=== PATIENT | male | born 1990 | race Caucasian/White ===

== ENCOUNTER 2016-09-12 11:55 | Emergency (ER) | payer BC, MEDICAID ==
[2016-09-12 12:37] VITALS: BP 120/74
[2016-09-12] MEDS ORDERED: PREDNISONE 20 MG TABLET PO ONE (12:55)
--- NOTE | 2016-09-12 13:04 | ER Document Report ---
HPI - HPI Patient complains to provider of: fascicular itchy rash Onset: This morning Onset/Duration: Gradual Pain Level: 0 Context: 25-year-old male that was in the [place] over the weekend developed a vesicular itchy rash to his face and groin. He is highly allergic to poison elizabeth and he thinks that he has it again Associated Symptoms: None Exacerbated by: Denies Relieved by: Denies Similar symptoms previously: No Recently seen / treated by doctor: No - ROS ROS below otherwise negative: Yes Systems Reviewed and Negative: Yes All other systems reviewed and negative - DERM Skin Color: Erythema Past Medical History - General Information source: Patient - Social History Smoking Status: Unknown if Ever Smoked Frequency of alcohol use: None Drug Abuse: None Lives with: Family Family History: Reviewed & Not Pertinent Patient has suicidal ideation: No Patient has homicidal ideation: No Renal/ Medical History: Denies: Hx Peritoneal Dialysis Musculoskeltal Medical History: Reports Hx Musculoskeletal Deformity, Reports Hx Musculoskeletal Trauma Skin Medical History: Reports Hx MRSA Traumatic Medical History: Reports: Hx Fractures - right hand Past Surgical History: Reports: Hx Abdominal Surgery - pyloric stenosis, Hx Orthopedic Surgery - left great toe, right hand - Immunizations Hx Diphtheria, Pertussis, Tetanus Vaccination: Yes Vertical Provider Document - CONSTITUTIONAL Agree With Documented VS: Yes Exam Limitations: No Limitations - INFECTION CONTROL TRAVEL OUTSIDE OF THE [place] IN LAST 30 DAYS: No - HEENT HEENT: Normocephalic, PERRLA Notes: Vesicular rash right side of his face with eyelid swelling. The right eyeball is normal with no injection. - NECK Neck: Supple. negative: Lymphadenopathy-Left, Lymphadenopathy-Right - RESPIRATORY Respiratory: Breath Sounds Normal, No Respiratory Distress O2 Sat by Pulse Oximetry: 99 - CARDIOVASCULAR Cardiovascular: Regular Rate, Regular Rhythm - REPRODUCTIVE Male Genitalia: Abnormal Inspection - Similar appearing rash to scrotum - MUSCULOSKELETAL/EXTREMETIES Musculoskeletal/Extremeties: ADRIAN POOL - NEURO Level of Consciousness: Awake, Alert - DERM Integumentary: Warm, Dry, Rash - See above Course - Vital Signs Vital signs: Temp Pulse Resp BP Pulse Ox 98.2 F 96 16 120/74 99 09/12/16 12:33 09/12/16 12:33 09/12/16 12:33 09/12/16 12:33 09/12/16 12:33 Discharge - Discharge Clinical Impression: Poison elizabeth Condition: Good Disposition: HOME, SELF-CARE Instructions: Use of Diphenhydramine, Topical Steroid Cream or Ointment ([facility]), Corticosteroid Medication ([facility]), Contact Dermatitis ([facility]) Additional Instructions: Benadryl for itching Steroids cream may help do not scratch that so you will not get secondary infection Return to the emergency room if worse Please complete the patient satisfaction survey if you get one, and return it.. If you do not receive a survey, then you can go to the [facility] website, [email or web address] and place your comments about your very good care. Thank you very much. It was a pleasure being your medical provider today. Prescriptions: RX: Prednisone [Deltasone 10 mg Tablet] 10 mg PO ASDIR PRN #42 tablet PRN Reason: Forms: Return to Work Referrals: ARACELI HUTTON MD [Primary Care Provider] - Follow up as needed
== END 2016-09-12 13:15 | disposition home or self-care (01) ==
LOC: ER 11:55
DX: L23.7 Allergic contact dermatitis due to plants, except food (principal); Z86.14 Personal history of Methicillin resistant Staphylococcus aureus infection
CPT/HCPCS: 99282; J7512

== ENCOUNTER 2016-09-13 11:16 | Emergency (ER) | payer BC ==
[2016-09-13] MEDS ORDERED: OXYCODONE-ACETAMINOPHEN 5-325 MG TABLET PO ONE (11:46)
[2016-09-13] MEDS ORDERED: NORMAL SALINE 1000 ML 1,000 ML IV ONE (11:47)
--- NOTE | 2016-09-13 11:47 | ER Document Report ---
ED Medical Screen (RME) - General Mode of Arrival: Ambulatory Information source: Patient TRAVEL OUTSIDE OF THE [place] IN LAST 30 DAYS: No - HPI Patient complains to provider of: Swelling and discomfort to the right eye and groin Onset: Other - 2 days ago Associated Symptoms: Other - see notes above <JOSUÉ NINO - Last Filed: 09/13/16 12:37> <MELANIE WING - Last Filed: 09/13/16 13:25> - General Chief Complaint: Eye Problem Stated Complaint: RIGHT EYE PAIN, SWELLING Notes: 25 year old sexually active male presents to the ED complaining of pain, swelling, and discomfort to the right eye and groin that started 2 days ago after taking a camping trip 3 days ago. Patient reports that he has some minor rashes to his extremities from the trip. Patient developed groin pain when he woke up 2 days ago and then developed the right eye swelling later that evening. Patient additionally complains of decreased urination, but no dysuria or fever. Patient was seen here yesterday and was prescribed Prednisone, which the patient states hasn't helped. Patient took 2 tablets of Benadryl this morning at 0930. Patient explains that his eye swelling is significantly worse than it was yesterday. (JOSUÉ NINO) - Related Data Allergies/Adverse Reactions: No Known Allergies Allergy (Verified 09/13/16 11:42) Home Medications: Current Home Medications No Home Medications 09/13/16 [History] Past Medical History - General Information source: Patient Neurological Medical History: Denies: Hx Seizures Renal/ Medical History: Denies: Hx Peritoneal Dialysis Musculoskeltal Medical History: Reports Hx Musculoskeletal Deformity, Reports Hx Musculoskeletal Trauma Skin Medical History: Reports Hx MRSA Traumatic Medical History: Reports: Hx Fractures - right hand Past Surgical History: Reports: Hx Abdominal Surgery - pyloric stenosis, Hx Orthopedic Surgery - left great toe, right hand - Immunizations Hx Diphtheria, Pertussis, Tetanus Vaccination: Yes <JOSUÉ NINO - Last Filed: 09/13/16 12:37> Review of Systems - Review of Systems Constitutional: No symptoms reported EENT: See HPI, Eye pain - right eye pain and swelling Cardiovascular: No symptoms reported Respiratory: No symptoms reported Gastrointestinal: No symptoms reported Genitourinary: No symptoms reported Male Genitourinary: See HPI, Other - swelling and discomfort to the groin Musculoskeletal: No symptoms reported Skin: No symptoms reported Hematologic/Lymphatic: No symptoms reported Neurological/Psychological: No symptoms reported -: Yes All other systems reviewed and negative <JOSUÉ NINO - Last Filed: 09/13/16 12:37> Physical Exam - HEENT Head: Other - Right upper and lower eye lid swelling with some edema and redness. Rash to the bilateral face. Eyes: Normal - Vision is intact., Other - No erythema. Conjunctiva: Normal Extraocular movements intact: Yes - No pain with EOM - Respiratory Respiratory status: No respiratory distress - Extremities General upper extremity: Normal inspection, Normal ROM General lower extremity: Normal inspection, Normal ROM <JOSUÉ NINO - Last Filed: 09/13/16 12:37> Course <JOSUÉ NINO - Last Filed: 09/13/16 12:37> - Laboratory Result Diagrams: 09/13/16 11:50 09/13/16 11:50 <MELANIE WING - Last Filed: 09/13/16 13:25> - Re-evaluation Re-evalutation: 09/13/16 13:15 I personally performed the services described in the documentation, reviewed and edited the documentation which was dictated to the scribe in my presence, and it accurately records my words and actions. (MELANIE WING) - Vital Signs Vital signs: Temp Pulse Resp BP Pulse Ox 98.4 F 67 16 126/69 H 100 09/13/16 11:38 09/13/16 11:38 09/13/16 11:38 09/13/16 11:38 09/13/16 11:38 - Laboratory Laboratory results interpreted by me: 09/13/16 11:50 WBC 13.0 H Absolute Neutrophils 9.0 H Scribe Documentation - Scribe Written by Scribisidoro:: Kiran Garcia, 09/13/2016 1158 acting as scribe for :: Hay <JOSUÉ NINO - Last Filed: 09/13/16 12:37>
[2016-09-13] MEDS ORDERED: CLINDAMYCIN 600 MG/D5W RTU 50 ML IV ONE (11:48)
[2016-09-13] MEDS ORDERED: FAMOTIDINE INJ/PF 20 MG/2 ML SDV IV ONE (12:38)
[2016-09-13] MEDS ORDERED: DIPHENHYDRAMINE HCL 50 MG/ML VIAL IV ONE (12:38)
[2016-09-13] MEDS ORDERED: METHYLPREDNISOLONE INJ 125 MG/2 ML SDV IV ONE (12:38)
[2016-09-13] MEDS ORDERED: MORPHINE SULFATE 10 MG/ML INJ IV ONE (12:39)
[2016-09-13 12:55] LABS: APPEARANCE,URINE SLIGHTLY-CLOUDY; BILIRUBIN,URINE NEGATIVE (NEGATIVE); GLUCOSE, URINE NEGATIVE (NEGATIVE); KETONES,URINE NEGATIVE (NEGATIVE); LEUKOCYTE ESTERASE,URINE NEGATIVE (NEGATIVE); NITRITE,URINE NEGATIVE (NEGATIVE); PROTEIN,URINE NEGATIVE (NEGATIVE); URINE SPECIFIC GRAVITY 1.031; UROBILINOGEN,URINE NEGATIVE mg/dL (<2.0)
[2016-09-13 12:59] LABS: ABSOLUTE BASOPHILS # (AUTO) 0.1 10^3/uL (0.0-0.2); ABSOLUTE EOSINOPHILS # (AUTO) 0.6 10^3/uL (0.0-0.6); ABSOLUTE LYMPHOCYTES (AUTO) 2.5 10^3/uL (0.5-4.7); ABSOLUTE MONOCYTES (AUTO) 0.8 10^3/uL (0.1-1.4); BASOPHILS % (AUTO) 0.5 % (0-2); EOSINOPHILS % (AUTO) 4.7 % (0-6); HEMATOCRIT 46.9 % (37.9-51.0); HEMOGLOBIN 15.8 g/dL (13.5-17.0); HGB HCT DIFFERENCE 0.5; LYMPHOCYTES % (AUTO) 19.3 % (13-45); MEAN CORPUSCULAR HEMOGLOBIN 29.5 pg (27.0-33.4); MEAN CORPUSCULAR HGB CONC 33.7 g/dL (32.0-36.0); MEAN CORPUSCULAR VOLUME 88 fl (80-97); MONOCYTES % (AUTO) 6.2 % (3-13); RED BLOOD COUNT 5.35 10^6/uL (4.35-5.55); RED CELL DISTRIBUTION WIDTH 12.9 % (11.5-14.0); SEGMENTED NEUTROPHILS % (AUTO) 69.3 % (42-78)
--- NOTE | 2016-09-13 13:00 | ER Document Report ---
ED General - General Chief Complaint: Eye Problem Stated Complaint: RIGHT EYE PAIN, SWELLING Mode of Arrival: Ambulatory Information source: Patient Notes: 25-year-old male presents with complaints of right facial swelling pain patient notes that symptoms have been worsening over the past few days. Patient notes he was exposed to poison elizabeth, had poison elizabeth on his face groin right arm and right leg. pt notes he was seen yesterday started on prednisone, symptoms have since worsened, denies any fevers or chills TRAVEL OUTSIDE OF THE [place] IN LAST 30 DAYS: No - HPI Onset: Last week Onset/Duration: Worse Quality of pain: Achy Severity: Mild Pain Level: 1 Associated symptoms: Allergy/hay fever Exacerbated by: Denies Relieved by: Denies Similar symptoms previously: Yes Recently seen / treated by doctor: Yes - Related Data Allergies/Adverse Reactions: No Known Allergies Allergy (Verified 09/13/16 11:42) Past Medical History - General Information source: Patient - Social History Smoking Status: Never Smoker Cigarette use (# per day): No Chew tobacco use (# tins/day): No Smoking Education Provided: No Family History: Reviewed & Not Pertinent Patient has suicidal ideation: No Patient has homicidal ideation: No Neurological Medical History: Denies: Hx Seizures Renal/ Medical History: Denies: Hx Peritoneal Dialysis Musculoskeltal Medical History: Reports Hx Musculoskeletal Deformity, Reports Hx Musculoskeletal Trauma Skin Medical History: Reports Hx MRSA Traumatic Medical History: Reports: Hx Fractures - right hand Past Surgical History: Reports: Hx Abdominal Surgery - pyloric stenosis, Hx Orthopedic Surgery - left great toe, right hand - Immunizations Hx Diphtheria, Pertussis, Tetanus Vaccination: Yes Review of Systems - Review of Systems Notes: REVIEW OF SYSTEMS: CONSTITUTIONAL : Denies fever, chills, or sweats. Denies recent illness. EENT: Denies eye, ear, throat, or mouth pain or symptoms. Denies nasal or sinus congestion or discharge. Denies throat, tongue, or mouth swelling or difficulty swallowing. CARDIOVASCULAR: Denies chest pain. Denies palpitations or racing or irregular heart beat. Denies ankle edema. RESPIRATORY: Denies cough, cold, or chest congestion. Denies shortness of breath, difficulty breathing, or wheezing. GASTROINTESTINAL: Denies abdominal pain or distention. Denies nausea, vomiting , or diarrhea. Denies blood in vomitus, stools, or per rectum. Denies black, tarry stools. Denies constipation. GENITOURINARY: Denies difficulty urinating, painful urination, burning, frequency, blood in urine, or discharge. MUSCULOSKELETAL: Denies back or neck pain or stiffness. Denies joint pain or swelling. SKIN: Facial swelling rash all throughout HEMATOLOGIC : Denies easy bruising or bleeding. LYMPHATIC: Denies swollen, enlarged glands. NEUROLOGICAL: Denies confusion or altered mental status. Denies passing out or loss of consciousness. Denies dizziness or lightheadedness. Denies headache. Denies weakness or paralysis or loss of use of either side. Denies problems with gait or speech. Denies sensory loss, numbness, or tingling. Denies seizures. PSYCHIATRIC: Denies anxiety or stress. Denies depression, suicidal ideation, or homicidal ideation. ALL OTHER SYSTEMS REVIEWED AND NEGATIVE. Dictation was performed using [employer] voice recognition software PHYSICAL EXAMINATION: GENERAL: Well-appearing, well-nourished and in no acute distress. HEAD: obvious facial edema, EYES: Pupils equal round and reactive to light, extraocular movements intact, sclera anicteric, presepatl cellulitis noted ENT: Nares patent, oropharynx clear without exudates. Moist mucous membranes. NECK: Normal range of motion, supple without lymphadenopathy LUNGS: Breath sounds clear to auscultation bilaterally and equal. No wheezes rales or rhonchi. HEART: Regular rate and rhythm without murmurs ABDOMEN: Soft, nontender, nondistended abdomen. No guarding, no rebound. No masses appreciated. Musculoskeletal: Normal range of motion, no pitting or edema. No cyanosis. NEUROLOGICAL: Cranial nerves grossly intact. Normal speech, normal gait. Normal sensory, motor exams PSYCH: Normal mood, normal affect. SKIN: Rash consistent with poison elizabeth on right wrist right perez right face, impetigo-like yellow discharge of right cheek obvious edema of the right face and left upper forehead and orbital region Physical Exam - Vital signs Vitals: Temp Pulse Resp BP Pulse Ox 98.4 F 67 16 126/69 H 100 09/13/16 11:38 09/13/16 11:38 09/13/16 11:38 09/13/16 11:38 09/13/16 11:38 - HEENT Visual acuity- Right eye: 20/30 Visual acuity- Left eye: n/a Visual acuity- Both eyes: n/a Corrective lenses worn: Yes Course - Re-evaluation Re-evalutation: 09/13/16 13:00 Patient has obvious preseptal cellulitis secondary to allergic reaction. He will be started on antibiotics given anti-inflammatories. Otherwise patient looks well CT ORBIT has been ordered to rule out any deep underlying infectious process however patient has no exophthalmos, he has no strabismus. Patient does not have any pain with movement of the 09/13/16 16:13 Patient notes significant improvement of symptoms, will be discharged home with continued antibiotics After performing a Medical Screening Examination, I estimate there is LOW risk for OPEN FRACTURE, COMPARTMENT SYNDROME, TENDON RUPTURE, ACUTE NEUROVASCULAR INJURY, or RETAINED FOREIGN BODY, thus I consider the discharge disposition reasonable. Also, there is no evidence or peritonitis, sepsis, or toxicity. The patient and I have discussed the diagnosis and risks, and we agree with discharging home with close follow-up with the understanding that symptoms and presentations can change. We also discussed returning to the Emergency Department immediately if new or worsening symptoms occur. We have discussed the symptoms which are most concerning (e.g., changing or worsening pain, fever , numbness, weakness, cool or painful digits) that necessitate immediate return. - Vital Signs Vital signs: Temp Pulse Resp BP Pulse Ox 98.4 F 67 16 126/69 H 100 09/13/16 11:38 09/13/16 11:38 09/13/16 11:38 09/13/16 11:38 09/13/16 11:38 - Laboratory Result Diagrams: 09/13/16 11:50 09/13/16 11:50 Laboratory results interpreted by me: 09/13/16 11:50 WBC 13.0 H Absolute Neutrophils 9.0 H - Diagnostic Test Radiology reviewed: Image reviewed, Reports reviewed Discharge - Discharge Clinical Impression: Poison elizabeth, Facial edema, Preseptal cellulitis Condition: Stable Disposition: HOME, SELF-CARE Instructions: Contact Dermatitis ([facility]) Additional Instructions: Follow up with your physician tomorrow for further care or return to the ED IMMEDIATELY if symptoms worsen or new concerns occur Prescriptions: Clindamycin HCl 300 mg PO Q6 #40 capsule Diphenhydramine HCl [Benadryl] 50 mg PO Q6 #20 capsule Famotidine [Pepcid 20 mg Tablet] 20 mg PO DAILY #5 tablet Prednisone 60 mg PO DAILY #15 tablet
[2016-09-13 13:16] LABS: ANION GAP 14 (5-19); BLOOD UREA NITROGEN 11 mg/dL (7-20); CALCIUM 9.9 mg/dL (8.4-10.2); CARBON DIOXIDE 27 mmol/L (22-30); CHLORIDE 103 mmol/L (98-107); CREATININE RESULT 0.75 mg/dL (0.52-1.25); GLUCOSE 82 mg/dL (75-110); POTASSIUM 4.3 mmol/L (3.6-5.0); SODIUM 144.4 mmol/L (137-145)
[2016-09-13] MEDS ORDERED: EPINEPHRINE INJ/PF 1 MG/1 ML AMPULE IM ONE (13:19)
[2016-09-13 18:03] VITALS: BP 131/69
== END 2016-09-13 16:40 | disposition home or self-care (01) ==
LOC: ER 11:16
DX: H57.11 Ocular pain, right eye (principal); L23.7 Allergic contact dermatitis due to plants, except food; L03.213 Periorbital cellulitis; R60.0 Localized edema
CPT/HCPCS: 99284; 96372; 96375; 96365; 36415; 87040; 85025; 80048; 81001; 70481; J1200; J0171; J2930; J2270; S0028

== ENCOUNTER 2016-10-09 20:13 | Emergency (ER) | payer BC ==
[2016-10-09 21:18] VITALS: BP 121/74
--- NOTE | 2016-10-09 23:05 | ER Document Report ---
ED Medical Screen (RME) - General Chief Complaint: Medical Complaint Stated Complaint: DOCTORS NOTE Time seen by provider: 23:05 Mode of Arrival: Ambulatory Information source: Patient Notes: 25-year-old man with no medical problems who is vomiting at work today and left work. He had had 2 hot dogs last night which he normally doesn't have an awoke with nausea and vomiting. Currently, he denies any more nausea and vomiting. He denies any fever or abdominal pain. TRAVEL OUTSIDE OF THE [place] IN LAST 30 DAYS: No - HPI Onset: This morning Onset/Duration: Sudden Quality of pain: No pain Severity: None Pain Level: Denies Associated Symptoms: Diarrhea, Nausea, Vomiting Exacerbated by: Denies Relieved by: Denies Similar symptoms previously: No Recently seen / treated by doctor: No - Related Data Smoking: Non-smoker Frequency of alcohol use: None Drug Abuse: None Allergies/Adverse Reactions: No Known Allergies Allergy (Verified 09/13/16 11:42) Past Medical History - General Information source: Patient - Social History Cigarette use (# per day): No Chew tobacco use (# tins/day): No Frequency of alcohol use: None Drug Abuse: None Lives with: Family Family history: Reviewed & Not Pertinent - Medical History Medical History: Negative Neurological Medical History: Denies: Hx Seizures Renal/ Medical History: Denies: Hx Peritoneal Dialysis Musculoskeltal Medical History: Reports Hx Musculoskeletal Deformity, Reports Hx Musculoskeletal Trauma Skin Medical History: Reports Hx MRSA Traumatic Medical History: Reports: Hx Fractures - right hand Past Surgical History: Reports: Hx Abdominal Surgery - pyloric stenosis, Hx Orthopedic Surgery - left great toe, right hand - Immunizations Hx Diphtheria, Pertussis, Tetanus Vaccination: Yes Review of Systems - Review of Systems Constitutional: denies: Chills, Fever EENT: No symptoms reported Cardiovascular: No symptoms reported Respiratory: No symptoms reported Gastrointestinal: No symptoms reported Genitourinary: No symptoms reported Male Genitourinary: No symptoms reported Musculoskeletal: No symptoms reported Skin: No symptoms reported Hematologic/Lymphatic: No symptoms reported Neurological/Psychological: No symptoms reported Physical Exam - Vital signs Vitals: Temp Pulse Resp BP Pulse Ox 98.8 F 76 18 121/74 98 10/09/16 21:17 10/09/16 21:17 10/09/16 21:17 10/09/16 21:17 10/09/16 21:17 Notes: Physical exam: GENERAL: 85-year-old man, alert and oriented 3, no acute distress HEAD: Atraumatic, normocephalic. EYES: Extraocular muscles intact, conjunctiva are normal. ENT: Moist mucous membranes. NECK: Normal range of motion, supple LUNGS: Breath sounds clear to auscultation bilaterally and equal. No wheezes rales or rhonchi. HEART: Regular rate and rhythm without murmurs, rubs or gallops. ABDOMEN: Soft, normoactive bowel sounds. No tenderness to palpation. No guarding, no rebound. No masses appreciated. EXTREMITIES: Normal range of motion, no pitting or edema. No clubbing or cyanosis. NEUROLOGICAL: Normal speech, normal gait. PSYCH: Normal mood, normal affect. Course - Vital Signs Vital signs: Temp Pulse Resp BP Pulse Ox 98.8 F 76 18 121/74 98 10/09/16 21:17 10/09/16 21:17 10/09/16 21:17 10/09/16 21:17 10/09/16 21:17 Doctor's Discharge - Discharge Clinical Impression: vomiting resolved Condition: Stable Disposition: HOME, SELF-CARE Additional Instructions: Recommendations: Rest, drink plenty of fluids and advance diet as tolerated. Return to the ER for any problems. Can return to work tomorrow morning. Forms: Return to Work
== END 2016-10-09 23:15 | disposition home or self-care (01) ==
LOC: ER 20:13
DX: R11.10 Vomiting, unspecified (principal); Z86.14 Personal history of Methicillin resistant Staphylococcus aureus infection
CPT/HCPCS: 99283

== ENCOUNTER 2016-11-11 07:08 | Emergency (ER) | payer BC ==
[2016-11-11] MEDS ORDERED: DIPHENHYDRAMINE HCL 50 MG/ML VIAL IV ONE (08:05)
[2016-11-11] MEDS ORDERED: FAMOTIDINE 20 MG TABLET PO ONE (08:05)
[2016-11-11] MEDS ORDERED: DIPHENHYDRAMINE HCL 50 MG/ML VIAL IM ONE (08:11)
--- NOTE | 2016-11-11 09:18 | ER Document Report ---
HPI - HPI Onset: This morning Onset/Duration: Sudden Quality of pain: No pain Pain Level: 0 Context: Patient presents emergency department with reports of possible allergic reaction to diclofenac. Patient reports he was just prescribed this medication by his primary care provider for back pain he took one this morning at 530. Approximately 1 hour later he felt like his face is on fire his ears are itching and now he started to itch all over. Denies trouble breathing or swallowing. Denies history of allergies to medication. Denies fever vomiting diarrhea. Patient is calm talking in clear full sentences. Associated Symptoms: None Exacerbated by: Denies Relieved by: Denies Similar symptoms previously: No Recently seen / treated by doctor: No - DERM Skin Color: Normal, [place] Past Medical History - General Information source: Patient - Social History Smoking Status: Unknown if Ever Smoked Frequency of alcohol use: Occasional Drug Abuse: None Occupation: [employer] Family History: Reviewed & Not Pertinent Patient has suicidal ideation: No Patient has homicidal ideation: No Neurological Medical History: Denies: Hx Seizures Renal/ Medical History: Denies: Hx Peritoneal Dialysis Musculoskeltal Medical History: Reports Hx Musculoskeletal Deformity, Reports Hx Musculoskeletal Trauma Skin Medical History: Reports Hx MRSA Traumatic Medical History: Reports: Hx Fractures - right hand Past Surgical History: Reports: Hx Abdominal Surgery - pyloric stenosis, Hx Orthopedic Surgery - left great toe, right hand - Immunizations Hx Diphtheria, Pertussis, Tetanus Vaccination: Yes Vertical Provider Document - CONSTITUTIONAL Agree With Documented VS: Yes Exam Limitations: No Limitations General Appearance: WD/WN, No Apparent Distress - INFECTION CONTROL TRAVEL OUTSIDE OF THE [place] IN LAST 30 DAYS: No - HEENT HEENT: Atraumatic, Normocephalic. negative: Conjuctival Injection, Pharyngeal Erythema - NECK Neck: Normal Inspection, Supple. negative: Lymphadenopathy-Left, Lymphadenopathy-Right - RESPIRATORY Respiratory: Breath Sounds Normal, No Respiratory Distress O2 Sat by Pulse Oximetry: 98 - CARDIOVASCULAR Cardiovascular: Regular Rate, Regular Rhythm - GI/ABDOMEN Gastrointestinal: Abdomen Soft, Abdomen Non-Tender - BACK Back: Normal Inspection - MUSCULOSKELETAL/EXTREMETIES Musculoskeletal/Extremeties: MAEW, FROM - NEURO Level of Consciousness: Awake, Alert, Appropriate Motor/Sensory: No Motor Deficit - DERM Integumentary: Warm, Dry, No Rash Adult Front & Back Diagram: 1 - facial erythema Course - Re-evaluation Re-evalutation: 11/11/16 No facial erythema now. Patient reports he feels much better. Denies trouble breathing. Patient was instructed to discontinue taking diclofenac. He was also instructed to follow-up with his primary care provider for alternative medication. - Vital Signs Vital signs: Temp Pulse Resp BP Pulse Ox 98.2 F 68 16 126/75 H 98 11/11/16 07:11 11/11/16 07:11 11/11/16 07:11 11/11/16 07:11 11/11/16 07:11 Discharge - Discharge Clinical Impression: Elevated blood pressure reading Allergic reaction caused by a drug Qualifiers: Encounter type: initial encounter Qualified Code(s): T78.40XA - Allergy, unspecified, initial encounter Condition: Stable Disposition: HOME, SELF-CARE Instructions: Acute Allergic Reaction to Drugs ([facility]), Use of Diphenhydramine Additional Instructions: *You have been evaluated for allergic reaction to medication *Stop taking the medications * Follow up today with the provider for recheck and alternate medication *Take benadryl as indicated for the next 24 hours *Return to ED for worsening condition, changes, needs, trouble breathing, concerns Monitor your blood pressure. Your blood pressure was elevated today. This may be because you were anxious, in pain or because you need medication. It is important to follow up with your primary care provider for full evaluation. Forms: Elevated Blood Pressure, Return to Work
[2016-11-11 09:29] VITALS: BP 111/64
== END 2016-11-11 09:27 | disposition home or self-care (01) ==
LOC: ER 07:08
DX: T39.395A Adverse effect of other nonsteroidal anti-inflammatory drugs [NSAID], initial encounter (principal); R03.0 Elevated blood-pressure reading, without diagnosis of hypertension; M54.9 Dorsalgia, unspecified; Y92.9 Unspecified place or not applicable
CPT/HCPCS: 99283; 96372; J1200

== ENCOUNTER 2016-11-11 19:08 | Emergency (ER) | payer BC ==
[2016-11-11] MEDS ORDERED: FAMOTIDINE 20 MG TABLET PO ONE (20:12)
[2016-11-11] MEDS ORDERED: PREDNISONE 20 MG TABLET PO ONE (20:12)
[2016-11-11] MEDS ORDERED: HYDROCODONE/ACETAMINOPHEN 5-325 MG 6 TAB/DSPK PO PRN (20:13)
--- NOTE | 2016-11-11 20:18 | ER Document Report ---
HPI - HPI Patient complains to provider of: back pain, itching Onset: Other - chronic, worse for past 2-3 weeks Onset/Duration: Persistent Quality of pain: Sharp Pain Level: 4 Context: Complains of flareup of chronic low back pain to right lower back area for the past 2-3 weeks. Patient denies any new injury. Patient states that he took diclofenac today and developed a skin rash after taking the medication. Patient states that since he is not taking this medicine he needs something else to help treat his back pain. Patient states that he did start itching a few hours ago and took Benadryl again to help with his pruritus. Associated Symptoms: Other - Pain, itching. denies: Fever Exacerbated by: Movement Relieved by: Denies Similar symptoms previously: Yes Recently seen / treated by doctor: Yes - ROS ROS below otherwise negative: Yes Systems Reviewed and Negative: Yes All other systems reviewed and negative - CONSTITUTIONAL Constitutional: DENIES: Fever - EENT EENT: DENIES: Sore Throat - NEURO Neurology: DENIES: Headache, Weakness - CARDIOVASCULAR Cardiovascular: DENIES: Chest pain - RESPIRATORY Respiratory: DENIES: Trouble Breathing, Coughing - GASTROINTESTINAL Gastrointestinal: DENIES: Nausea, Patient vomiting - URINARY Urinary: DENIES: Dysuria - MUSCULOSKELETAL Musculoskeletal: REPORTS: Back Pain - DERM Skin Color: Normal, [place] Skin Problems: Rash Past Medical History - General Information source: Patient - Social History Smoking Status: Never Smoker Chew tobacco use (# tins/day): No Frequency of alcohol use: Occasional Drug Abuse: None Occupation: fast food worker Lives with: Family Family History: Reviewed & Not Pertinent Patient has suicidal ideation: No Patient has homicidal ideation: No Neurological Medical History: Denies: Hx Seizures Renal/ Medical History: Denies: Hx Peritoneal Dialysis Musculoskeltal Medical History: Reports Hx Musculoskeletal Deformity, Reports Hx Musculoskeletal Trauma, Reports Other - back pain Skin Medical History: Reports Hx MRSA Traumatic Medical History: Reports: Hx Fractures - right hand Past Surgical History: Reports: Hx Abdominal Surgery - pyloric stenosis, Hx Orthopedic Surgery - left great toe, right hand - Immunizations Hx Diphtheria, Pertussis, Tetanus Vaccination: Yes Vertical Provider Document - CONSTITUTIONAL Agree With Documented VS: Yes Exam Limitations: No Limitations General Appearance: WD/WN, No Apparent Distress - INFECTION CONTROL TRAVEL OUTSIDE OF THE [place] IN LAST 30 DAYS: No - HEENT HEENT: Atraumatic, Normal ENT Exam, Normocephalic Notes: no angioedema - NECK Neck: Normal Inspection, Supple. negative: Lymphadenopathy-Left, Lymphadenopathy-Right - RESPIRATORY Respiratory: Breath Sounds Normal, No Respiratory Distress, Chest Non-Tender O2 Sat by Pulse Oximetry: 99 - CARDIOVASCULAR Cardiovascular: Regular Rate, Regular Rhythm, No Murmur - BACK Back: Abnormal Inspection - right lower lumbar paraspinal tenderness. negative : CVA Tenderness-Right, CVA Tenderness-Left - MUSCULOSKELETAL/EXTREMETIES Musculoskeletal/Extremeties: ADRIAN POOL Notes: no foot drop, no saddle anesthesia - NEURO Level of Consciousness: Awake, Alert, Appropriate Motor/Sensory: No Motor Deficit, No Sensory Deficit - DERM Integumentary: Warm, Dry, Rash - urticarial rash to extremities Course - Re-evaluation Re-evalutation: 11/11/16 Pt seen earlier this morning for skin rash. Patient was given Benadryl and Pepcid although was not placed on any steroids. Discussed plan of care with patient. Patient verbalized understanding and agrees with plan of care. - Vital Signs Vital signs: Temp Pulse Resp BP Pulse Ox 98.1 F 72 20 133/79 H 99 11/11/16 19:18 11/11/16 19:18 11/11/16 19:18 11/11/16 19:18 11/11/16 19:18 Discharge - Discharge Clinical Impression: Urticaria Low back pain Qualifiers: Chronicity: unspecified Back pain laterality: right Sciatica presence: without sciatica Qualified Code(s): M54.5 - Low back pain Condition: Stable Disposition: HOME, SELF-CARE Instructions: Low Back Pain ([facility]), Warm Packs ([facility]), Ice Packs ([facility]), Oral Narcotic Medication ([facility]), Acute Urticaria ([facility]), Steroid Medication, Use of Diphenhydramine Additional Instructions: return as needed for any new or worsening symptoms take medications as prescribed take benadryl over the counter as directed to help with rash and itching take pepcid twice a day to help with symptoms Prescriptions: Famotidine [Pepcid 20 mg Tablet] 20 mg PO BID #12 tablet Hydrocodone/Acetaminophen [Wilson 5-325 Tablet] 1 each PO Q4 PRN #15 tablet PRN Reason: Prednisone [Deltasone 20 mg Tablet] 3 tab PO DAILY 5 Days Forms: Return to Work Referrals: ARACELI HUTTON MD [ACTIVE STAFF] - Follow up tomorrow [facility] [Provider Group] - Follow up in 3-5 days
[2016-11-11 20:39] VITALS: BP 124/79
== END 2016-11-11 20:40 | disposition home or self-care (01) ==
LOC: ER 19:08
DX: T78.40XA Allergy, unspecified, initial encounter (principal); R03.0 Elevated blood-pressure reading, without diagnosis of hypertension
CPT/HCPCS: 99283

== ENCOUNTER 2016-11-24 15:43 | Emergency (ER) | payer BC ==
[2016-11-24] MEDS ORDERED: KETOROLAC TROMETHAMINE 60 MG/2 ML SDV IM ONE (17:08)
--- NOTE | 2016-11-24 17:11 | ER Document Report ---
HPI - HPI Patient complains to provider of: herniated disc with bakc pain Onset: Other - chronic Quality of pain: Achy Pain Level: 5 Context: 25-year-old male who is ambulatory with chronic back pain diagnosed with herniated disc. Denies any urinary/stool incontinence, saddle anesthesia. Exacerbated by: Movement Relieved by: Remaining still Similar symptoms previously: Yes Recently seen / treated by doctor: Yes - DERM Skin Color: Normal Past Medical History - Social History Smoking Status: Never Smoker Chew tobacco use (# tins/day): No Frequency of alcohol use: None Drug Abuse: None Family History: Reviewed & Not Pertinent Patient has suicidal ideation: No Patient has homicidal ideation: No Neurological Medical History: Denies: Hx Seizures Renal/ Medical History: Denies: Hx Peritoneal Dialysis Musculoskeltal Medical History: Reports Hx Musculoskeletal Deformity, Reports Hx Musculoskeletal Trauma Skin Medical History: Reports Hx MRSA Traumatic Medical History: Reports: Hx Fractures - right hand Past Surgical History: Reports: Hx Abdominal Surgery - pyloric stenosis, Hx Orthopedic Surgery - left great toe, right hand - Immunizations Hx Diphtheria, Pertussis, Tetanus Vaccination: Yes Immunizations Comment: + pneu vacx Vertical Provider Document - CONSTITUTIONAL Agree With Documented VS: Yes Notes: PHYSICAL EXAM GENERAL: Alert, interacts well. NECK: Full range of motion. Supple. Trachea midline. Spinous processes or thoracic spinous process tenderness. Full range of motion able to flex and extend spine. LUNGS: Clear to auscultation bilaterally, no wheezes, rales, or rhonchi. No respiratory distress. HEART: Regular rate and rhythm. No murmurs, gallops, or rubs. ABDOMEN: Soft, nondistended, nontender. No guarding, rebound, or rigidity.. Bowel sounds present in all 4 quadrants. Back: No spinous process tenderness, deformity, step-offs, ecchymosis. No paraspinous muscle tenderness to palpation. Full range of motion. Gait normal. EXTREMITIES: Moves all 4 extremities spontaneously. No edema, radial and dorsalis pedis pulses 2/4 bilaterally. No cyanosis. NEUROLOGICAL: Alert and oriented x4. Normal speech. PSYCH: Normal affect, normal mood. SKIN: Warm, dry, normal turgor. No rashes or lesions noted. - INFECTION CONTROL TRAVEL OUTSIDE OF THE [place] IN LAST 30 DAYS: No - RESPIRATORY O2 Sat by Pulse Oximetry: 99 Course - Re-evaluation Re-evalutation: 11/24/16 17:08 The patient presents with low back pain without signs of spinal cord compression , cauda equina syndrome, infection, aneurysm, or other serious etiology. The patient is neurologically intact. Given the extremely low risk of these diagnoses further testing and evaluation for these possibilities does not appear to be indicated at this time. The patient has been instructed to return if the symptoms worsen or change in any way. - Vital Signs Vital signs: Temp Pulse Resp BP Pulse Ox 98.0 F 70 17 120/79 99 11/24/16 15:47 11/24/16 15:47 11/24/16 15:47 11/24/16 15:47 11/24/16 15:47 Discharge - Discharge Clinical Impression: Chronic back pain Qualifiers: Back pain location: thoracic back pain Condition: Good Disposition: HOME, SELF-CARE Additional Instructions: [id number] colace/docusate will aid as a stool softener LOW BACK PAIN: Three out of every four people will have an episode of disabling back pain during their lifetime. Most commonly the pain is due to straining of the muscles and ligaments in the low back. Usual treatment includes: (1) Rest on a firm surface. Avoid lying on your stomach. (2) Ice pack the painful area. After a few days, gentle heat may be used intermittently to relax the area, or ice packs can be continued. (3) Medication may be needed -- muscle relaxers and antiinflammatory medicines are commonly used. (4) As the back improves, exercises are prescribed to strengthen the back and abdominal muscles. Your doctor will advise you on the proper care for your back at each stage in your recovery. You may be better in a few days -- or healing may take several weeks. If new symptoms of a "herniated disc" (radiation of pain, numbness, or tingling down the back of the leg or weakness in the leg) occur, you should be re-examined. Further testing may be necessary. PAIN MEDICATION INJECTION: You have received an injection of a pain medication. You should experience significant pain relief within 45 minutes. If this injection was a narcotic -- it will impair your judgement, slow your reaction time and make you sleepy (as well as relieve your pain). Narcotics also can cause nausea. You should not drive, work with machinery, or perform any task requiring mental alertness until all effects of the medication are gone -- six to eight hours. Do not take any alcohol, or sedatives, and do not take any other medication without checking with your physician. ICE PACKS: Apply ice packs frequently against the painful area. Many different schedules are recommended, such as "20 minutes on, 20 minutes off" or "one hour ice, two hours rest." If you need to work, you may need to go longer between ice treatments. You should plan to have the area ice packed AT LEAST one fourth of the time. The ice should be applied over the wrap, tape, or splint, or over a layer of cloth -- not directly against the skin. Some ice bags have a built-in cloth and can be put directly on the skin. WARM PACKS: After approximately two days, apply gentle heat (such as a heating pad or hot water bottle) for about 20 to 30 minutes about every two hours -- at least four times daily. Warmth and elevation will help you make a more rapid recovery , and will ease the pain considerably. Do not use HOT heat, and never apply heat for longer than 30 minutes. The continuous heat can invisibly damage skin and muscles -- even when no burn is seen on the surface. Damaged muscles can make you MORE sore. FOLLOW-UP CARE: If you have been referred to a physician for follow-up care, call the physician s office for an appointment as you were instructed or within the next two days. If you experience worsening or a significant change in your symptoms, notify the physician immediately or return to the Emergency Department at any time for re-evaluation. Prescriptions: Ondansetron [Zofran Odt 4 mg Tablet] 1 - 2 tab PO Q4H PRN #15 tab.rapdis PRN Reason: For Nausea/Vomiting Referrals: [facility] [Provider Group] - Follow up tomorrow
[2016-11-24 17:36] VITALS: BP 118/78
== END 2016-11-24 17:36 | disposition home or self-care (01) ==
LOC: ER 15:43
DX: G89.29 Other chronic pain (principal); M54.9 Dorsalgia, unspecified; M54.5 Low back pain
CPT/HCPCS: 99283; 96372; J1885

== ENCOUNTER 2017-02-25 05:04 | Emergency (ER) | payer BC ==
[2017-02-25 06:14] LABS: APPEARANCE,URINE CLEAR; BILIRUBIN,URINE NEGATIVE (NEGATIVE); GLUCOSE, URINE NEGATIVE (NEGATIVE); KETONES,URINE NEGATIVE (NEGATIVE); LEUKOCYTE ESTERASE,URINE NEGATIVE (NEGATIVE); NITRITE,URINE NEGATIVE (NEGATIVE); PROTEIN,URINE NEGATIVE (NEGATIVE); URINE SPECIFIC GRAVITY 1.025; UROBILINOGEN,URINE NEGATIVE mg/dL (<2.0)
[2017-02-25 06:19] LABS: ABSOLUTE BASOPHILS # (AUTO) 0.1 10^3/uL (0.0-0.2); ABSOLUTE EOSINOPHILS # (AUTO) 2.6 10^3/uL (0.0-0.6); ABSOLUTE MONOCYTES (AUTO) 0.8 10^3/uL (0.1-1.4); ABSOLUTE NEUT (AUTO) 10.2 10^3/uL (1.7-8.2); BASOPHILS % (AUTO) 0.3 % (0-2); EOSINOPHILS % (AUTO) 16.5 % (0-6); HEMATOCRIT 40.9 % (37.9-51.0); HEMOGLOBIN 14.2 g/dL (13.5-17.0); HGB HCT DIFFERENCE 1.7; LYMPHOCYTES % (AUTO) 12.8 % (13-45); MEAN CORPUSCULAR HEMOGLOBIN 29.8 pg (27.0-33.4); MEAN CORPUSCULAR HGB CONC 34.7 g/dL (32.0-36.0); MEAN CORPUSCULAR VOLUME 86 fl (80-97); MONOCYTES % (AUTO) 5.3 % (3-13); RED BLOOD COUNT 4.77 10^6/uL (4.35-5.55); RED CELL DISTRIBUTION WIDTH 13.1 % (11.5-14.0); SEGMENTED NEUTROPHILS % (AUTO) 65.1 % (42-78); WHITE BLOOD COUNT 15.7 10^3/uL (4.0-10.5)
[2017-02-25 06:26] LABS: ALANINE AMINOTRANSFERASE 28 U/L (21-72); ALBUMIN 4.2 g/dL (3.5-5.0); ALKALINE PHOSPHATASE 72 U/L (38-126); ANION GAP 11 (5-19); ASPARTATE AMINO TRANSFERASE 20 U/L (17-59); BILIRUBIN,DIRECT 0.3 mg/dL (0.0-0.4); BILIRUBIN,TOTAL 0.6 mg/dL (0.2-1.3); BLOOD UREA NITROGEN 9 mg/dL (7-20); CALCIUM 9.8 mg/dL (8.4-10.2); CARBON DIOXIDE 26 mmol/L (22-30); CHLORIDE 102 mmol/L (98-107); CREATININE RESULT 0.69 mg/dL (0.52-1.25); GLUCOSE 119 mg/dL (75-110); LIPASE 55.4 U/L (23-300); POTASSIUM 4.4 mmol/L (3.6-5.0); SODIUM 139.3 mmol/L (137-145); TOTAL PROTEIN 6.9 g/dL (6.3-8.2)
[2017-02-25] MEDS ORDERED: HYDROMORPHONE HCL INJ/PF 2 MG/ML AMPULE IV ONE (06:46)
[2017-02-25] MEDS ORDERED: ONDANSETRON HCL INJ/PF 4 MG/2 ML SDV IV ONE (06:46)
[2017-02-25] MEDS ORDERED: NORMAL SALINE 1000 ML 1,000 ML IV ONE (06:46)
--- NOTE | 2017-02-25 08:02 | ER Document Report ---
ED General - General Chief Complaint: Abdominal Pain Stated Complaint: ABDOMINAL Time Seen by Provider: 02/25/17 06:14 Mode of Arrival: Ambulatory Information source: Patient Notes: 26-year-old male resents with sudden abdominal pain a few hours prior to arrival. Patient admits to nausea vomiting TRAVEL OUTSIDE OF THE [place] IN LAST 30 DAYS: No - HPI Onset: Just prior to arrival Onset/Duration: Sudden Quality of pain: Achy Severity: Moderate Pain Level: 2 Associated symptoms: Nausea, Vomiting Exacerbated by: Denies Relieved by: Denies Similar symptoms previously: No Recently seen / treated by doctor: No - Related Data Allergies/Adverse Reactions: dicyclomine Allergy (Verified 02/25/17 06:05) Past Medical History - Social History Smoking Status: Never Smoker Cigarette use (# per day): No Chew tobacco use (# tins/day): No Smoking Education Provided: No Family History: Reviewed & Not Pertinent Neurological Medical History: Denies: Hx Seizures Renal/ Medical History: Denies: Hx Peritoneal Dialysis Musculoskeltal Medical History: Reports Hx Musculoskeletal Deformity, Reports Hx Musculoskeletal Trauma Skin Medical History: Reports Hx MRSA Traumatic Medical History: Reports: Hx Fractures - right hand Past Surgical History: Reports: Hx Abdominal Surgery - pyloric stenosis, Hx Orthopedic Surgery - left great toe, right hand - Immunizations Hx Diphtheria, Pertussis, Tetanus Vaccination: Yes Review of Systems - Review of Systems Notes: REVIEW OF SYSTEMS: CONSTITUTIONAL : Denies fever, chills, or sweats. Denies recent illness. EENT: Denies eye, ear, throat, or mouth pain or symptoms. Denies nasal or sinus congestion or discharge. Denies throat, tongue, or mouth swelling or difficulty swallowing. CARDIOVASCULAR: Denies chest pain. Denies palpitations or racing or irregular heart beat. Denies ankle edema. RESPIRATORY: Denies cough, cold, or chest congestion. Denies shortness of breath, difficulty breathing, or wheezing. GASTROINTESTINAL: Admits to nausea vomiting GENITOURINARY: Denies difficulty urinating, painful urination, burning, frequency, blood in urine, or discharge. MUSCULOSKELETAL: Denies back or neck pain or stiffness. Denies joint pain or swelling. SKIN: Denies rash, lesions or sores. HEMATOLOGIC : Denies easy bruising or bleeding. LYMPHATIC: Denies swollen, enlarged glands. NEUROLOGICAL: Denies confusion or altered mental status. Denies passing out or loss of consciousness. Denies dizziness or lightheadedness. Denies headache. Denies weakness or paralysis or loss of use of either side. Denies problems with gait or speech. Denies sensory loss, numbness, or tingling. Denies seizures. PSYCHIATRIC: Denies anxiety or stress. Denies depression, suicidal ideation, or homicidal ideation. ALL OTHER SYSTEMS REVIEWED AND NEGATIVE. Dictation was performed using [employer] voice recognition software PHYSICAL EXAMINATION: GENERAL: Well-appearing, well-nourished and in no acute distress. HEAD: Atraumatic, normocephalic. EYES: Pupils equal round and reactive to light, extraocular movements intact, sclera anicteric, conjunctiva are normal. ENT: Nares patent, oropharynx clear without exudates. Moist mucous membranes. NECK: Normal range of motion, supple without lymphadenopathy LUNGS: Breath sounds clear to auscultation bilaterally and equal. No wheezes rales or rhonchi. HEART: Regular rate and rhythm without murmurs ABDOMEN: Soft, tender right lower quadrant tender epigastric Musculoskeletal: Normal range of motion, no pitting or edema. No cyanosis. NEUROLOGICAL: Cranial nerves grossly intact. Normal speech, normal gait. Normal sensory, motor exams PSYCH: Normal mood, normal affect. SKIN: Warm, Dry, normal turgor, no rashes or lesions noted. Physical Exam - Vital signs Vitals: Temp Pulse Resp BP Pulse Ox 97.9 F 59 L 20 140/90 H 100 02/25/17 05:11 02/25/17 05:11 02/25/17 05:11 02/25/17 05:11 02/25/17 05:11 Course - Re-evaluation Re-evalutation: 02/25/17 08:02 Labwork notes white count elevation imagings pending at this time Concern for appendicitis 02/25/17 09:42 CT abdomen noted no significant abnormality however it is noted a left lower infiltrate vs ca. pt noted to be feeling much better Patient will be treated for this infiltrate given very strict return precautions as well as follow-up for evaluation of this image After performing a Medical Screening Examination, I estimate there is LOW risk for ACUTE APPENDICITIS, BOWEL OBSTRUCTION, ACUTE CHOLECYSTITIS, PERFORATED DIVERTICULITIS, INCARCERATED HERNIA, PANCREATITIS, or PERFORATED ULCER, thus I consider the discharge disposition reasonable. Also, there is no evidence or peritonitis, sepsis, or toxicity. I have reevaluated this patient multiple times and no significant life threatening changes are noted. The patient and I have discussed the diagnosis and risks, and we agree with discharging home with close follow-up with the understanding that symptoms and presentations can change. We also discussed returning to the Emergency Department immediately if new or worsening symptoms occur. We have discussed the symptoms which are most concerning (e.g., bloody stool, fever, changing or worsening pain, intractable vomiting - standard verbal up date) that necessitate immediate return. - Vital Signs Vital signs: Temp Pulse Resp BP Pulse Ox 97.9 F 59 L 20 140/90 H 100 02/25/17 05:11 02/25/17 05:11 02/25/17 05:11 02/25/17 05:11 02/25/17 05:11 - Laboratory Result Diagrams: 02/25/17 05:55 02/25/17 05:55 Laboratory results interpreted by me: 02/25/17 02/25/17 02/25/17 05:55 05:55 05:55 WBC 15.7 H Lymphocytes % 12.8 L Eosinophils % 16.5 H Absolute Neutrophils 10.2 H Absolute Eosinophils 2.6 H Glucose 119 H Urine Ascorbic Acid 20 H - Diagnostic Test Radiology reviewed: Image reviewed, Reports reviewed Discharge - Discharge Clinical Impression: Abdominal pain Qualifiers: Abdominal location: generalized Qualified Code(s): R10.84 - Generalized abdominal pain Pneumonia Qualifiers: Pneumonia type: due to unspecified organism Laterality: left Lung location: lower lobe of lung Qualified Code(s): J18.1 - Lobar pneumonia, unspecified organism Nausea & vomiting Qualifiers: Vomiting type: unspecified Vomiting Intractability: unspecified Qualified Code( s): R11.2 - Nausea with vomiting, unspecified Condition: Stable Disposition: HOME, SELF-CARE Instructions: Abdominal Pain ([facility]) Prescriptions: Azithromycin 250 mg PO ASDIR PRN #6 tablet PRN Reason: Epinephrine [Epipen Jr 0.15 mg/0.3 mL AutoInject] 1 ea IM ASDIR PRN #1 autoinjector PRN Reason: Epinephrine 1 mg IM ASDIR PRN #1 ampul PRN Reason: Hydrocodone/Acetaminophen [[place]xton 5-325 mg Tablet] 1 tab PO Q6 #10 tablet Metoclopramide HCl [Reglan 10 mg Tablet] 1 - 2 tab PO ASDIR PRN #25 tablet PRN Reason: Referrals: KIT GALLARDO MD [Primary Care Provider] - Follow up tomorrow
--- NOTE | 2017-02-25 09:28 | RADIOLOGY REPORT (SQ) ---
EXAM DESCRIPTION: CT ABD/PELVIS WITH IV ORAL COMPLETED DATE/TIME: 02/25/2017 9:15 am REASON FOR STUDY: abd pain COMPARISON: 06/17/2011. TECHNIQUE: CT scan of the abdomen and pelvis performed using helical scanning technique with dynamic intravenous contrast injection and with oral contrast. Images reviewed with lung, soft tissue, and b one windows. Reconstructed coronal and sagittal MPR images reviewed. Delayed images for evaluation of the urinary system also acquired. All images stored on PACS. All CT scanners at this facility use dose modulation, iterative reconstruction, and/or weight based d osing when appropriate to reduce radiation dose to as low as reasonably achievable (ALARA). [facility]: Dose Right [facility]: CareDose [facility]: Dose Right [facility]: Teradose 4D [facility]: [employer]ies™ Interactive CONTRAST TYPE AND DOSE: contrast/concentration: Isovue 370.00 mg/ml; Total Contrast Delivered: 88.0 ml; Total Saline Delivered: 70.0 ml RENAL FUNCTION: BUN 9 creatinine 0.69. RADIATION DOSE: Up-to-date CT equipment and radiation dose reduction techniques were employed. CTDIv ol: 8.2 - 11.8 mGy. DLP: 1002 mGy-cm.. LIMITATIONS: None. FINDINGS: LOWER CHEST: Hazy focal density in the left lower lobe, measuring approximately 1 x 2.5 cm . Images 1-7. LIVER: Normal size. No masses. No dilated ducts. SPLEEN: Normal size. No focal lesions. PANCREAS: No masses. No significant calcifications. No adjacent inflammation or peripancreatic fluid collections. Pancreatic duct not dilated. GALLBLADDER: No identified stones by CT criteria. No inflammatory changes to suggest cholecystitis. ADRENAL GLANDS: No significant masses or asymmetry. RIGHT KIDNEY AND URETER: No solid masses. No significant calcifications. No hydronephrosis or hyd roureter. LEFT KIDNEY AND URETER: No solid masses. No significant calcifications. No hydronephrosis or hydr oureter. AORTA AND VESSELS: No aneurysm. No dissection. Renal arteries, SMA, celiac without stenosis. RETROPERITONEUM: No retroperitoneal adenopathy, hemorrhage or masses. BOWEL AND PERITONEAL CAVITY: No masses or inflammatory changes. No free fluid or peritoneal masses. APPENDIX: Normal. PELVIS: No mass. No free fluid. Normal bladder. ABDOMINAL WALL: No masses. No hernias. BONES: No significant or acute findings. OTHER: No other significant finding. IMPRESSION: 1. NO SIGNIFICANT OR ACUTE FINDING IN THE ABDOMEN OR PELVIS ON CT SCAN WITH IV CONTRAST. 2. HAZY FOCAL DENSITY IN THE LEFT LOWER LOBE. THIS COULD REPRESENT FOCAL AREA OF PNEUMONIA. MALIGNA NT PROCESS PROBABLY LESS LIKELY. TECHNICAL DOCUMENTATION: JOB ID: [id number] Quality ID # [id number]: Final reports with documentation of one or more dose reduction techniques (e.g., Au tomated exposure control, adjustment of the mA and/or kV according to patient size, use of iterative reconstruction technique) 2010 [employer]- All Rights Reserved
[2017-02-25 10:20] VITALS: BP 128/80
== END 2017-02-25 10:16 | disposition home or self-care (01) ==
LOC: ER 05:04
DX: J18.1 Lobar pneumonia, unspecified organism (principal); R11.2 Nausea with vomiting, unspecified; R10.84 Generalized abdominal pain; Z86.14 Personal history of Methicillin resistant Staphylococcus aureus infection
CPT/HCPCS: 99284; 96361; 96374; 96375; 36415; 83690; 85025; 80053; 81001; 74177; J1170; J2405; J7030

== ENCOUNTER 2017-03-12 10:01 | Emergency (ER) | payer BC ==
[2017-03-12] MEDS ORDERED: ONDANSETRON HCL INJ/PF 4 MG/2 ML SDV IV ONE (10:50)
[2017-03-12] MEDS ORDERED: PROCHLORPERAZINE EDISYLATE INJ 10 MG/2 ML VIAL IV ONE (10:50)
[2017-03-12] MEDS ORDERED: DIPHENHYDRAMINE HCL 50 MG/ML VIAL IV ONE (10:50)
[2017-03-12] MEDS ORDERED: KETOROLAC TROMETHAMINE INJ/PF 30 MG/1 ML SDV IV ONE (10:50)
--- NOTE | 2017-03-12 10:53 | ER Document Report ---
HPI - HPI Pain Level: 5 Notes: Patient is a 26-year-old male who presents the ED complaining of a dry semi- productive cough 5 days, headache 3 days, and nausea without vomiting. Patient states that he was diagnosed with pneumonia about 2-2.5 weeks ago and was placed on a Z-Wei. Patient states that his symptoms resolved after about 1 week, but returned this past Monday. Patient is still eating and drinking without any difficulties, but does have a decreased appetite. Patient states that his headache is generalized and is worsened when he coughs. He has not noticed any eye pain or changes in his vision. + light sensitivity. Pt has had SABILLON's similar in the past, but this one has been more persistent than previous. He has not noticed any neck pain or stiffness. Otherwise she is still urinating normally and having normal bowel movements. Denies any fever, head injury, neck pain, changes in vision/speech/mentation/hearing, URI, sore throat, chest pain, palpitations, syncope, shortness of breath, wheeze, dyspnea , abdominal pain, nausea/vomiting/diarrhea, urinary retention, dysuria, hematuria, loss of control of bowel or bladder, numbness/tingling, saddle anesthesia, muscle paralysis/weakness, or rash. Patient denies any smoking or illicit drug use. Denies any significant past medical history otherwise. - ROS Notes: REVIEW OF SYSTEMS: CONSTITUTIONAL : Denies fever, chills, or sweats. see hpi EENT: Denies eye, ear, throat, or mouth pain or symptoms. Denies nasal or sinus congestion or discharge. Denies throat, tongue, or mouth swelling or difficulty swallowing. CARDIOVASCULAR: Denies chest pain. Denies palpitations or racing or irregular heart beat. Denies ankle edema. RESPIRATORY: see hpi GASTROINTESTINAL: Denies abdominal pain or distention. Denies nausea, vomiting , or diarrhea. Denies blood in vomitus, stools, or per rectum. Denies black, tarry stools. Denies constipation. GENITOURINARY: Denies difficulty urinating, painful urination, burning, frequency, blood in urine, or discharge. MUSCULOSKELETAL: Denies back or neck pain or stiffness. Denies joint pain or swelling. SKIN: Denies rash, lesions or sores. NEUROLOGICAL: see hpi. Denies confusion or altered mental status. Denies passing out or loss of consciousness. Denies dizziness or lightheadedness. Denies weakness or paralysis or loss of use of either side. Denies problems with gait or speech. Denies sensory loss, numbness, or tingling. ALL OTHER SYSTEMS REVIEWED AND NEGATIVE. Dictation was performed using [employer] voice recognition software - DERM Skin Color: Normal Past Medical History - Social History Smoking Status: Never Smoker Family History: Reviewed & Not Pertinent Patient has suicidal ideation: No Patient has homicidal ideation: No Neurological Medical History: Denies: Hx Seizures Renal/ Medical History: Denies: Hx Peritoneal Dialysis Musculoskeltal Medical History: Reports Hx Musculoskeletal Deformity, Reports Hx Musculoskeletal Trauma Skin Medical History: Reports Hx MRSA Traumatic Medical History: Reports: Hx Fractures - right hand Past Surgical History: Reports: Hx Abdominal Surgery - pyloric stenosis, Hx Orthopedic Surgery - left great toe, right hand - Immunizations Hx Diphtheria, Pertussis, Tetanus Vaccination: Yes Vertical Provider Document - CONSTITUTIONAL Agree With Documented VS: Yes Notes: PHYSICAL EXAMINATION: GENERAL: Well-appearing, well-nourished and in no acute distress. A&Ox4 HEAD: Atraumatic, normocephalic. Nontender. EYES: Pupils equal round and reactive to light, extraocular movements intact, sclera anicteric, conjunctiva are normal. ENT: EAC clear b/l. TM's intact b/l without erythema, fluid, or perforation. Nares patent and without discharge. oropharynx clear without exudates. No tonsilar hypertrophy or erythema. Moist mucous membranes. No sinus tenderness. NECK: Normal range of motion, supple without lymphadenopathy. Non-tender. No rigidity/meningismus. Kernig/brudzinski negative. LUNGS: Breath sounds clear to auscultation bilaterally and equal. No wheezes rales or rhonchi. HEART: Regular rate and rhythm without murmurs, rubs, gallops. ABDOMEN: Soft, nontender, nondistended abdomen. No guarding, no rebound. No masses appreciated. Normal bowel sounds present. No CVA tenderness bilaterally. Musculoskeletal: Ext b/l: FROM to passive/active. Strength 5+/5. No focal deficits. Extremities: No cyanosis, clubbing, or edema b/l. Peripheral pulses 2+. Capillary refill less than 3 seconds. NEUROLOGICAL: MMSE intact. Cranial nerves grossly intact. Normal speech, normal gait. Normal sensory, motor exams PSYCH: Normal mood, normal affect. SKIN: Warm, Dry, normal turgor, no rashes or lesions noted. - INFECTION CONTROL TRAVEL OUTSIDE OF THE [place] IN LAST 30 DAYS: No - RESPIRATORY O2 Sat by Pulse Oximetry: 100 Course - Re-evaluation Re-evalutation: 03/12/17 12:15 Patient is an afebrile, well-hydrated, 26-year-old male who presents to the ED with a headache and cough, suspect viral at this time. Vitals are stable. PE otherwise unremarkable. CBC, CMP, chest x-ray were unremarkable for any acute pathology. Toradol 30 mg, Compazine 10 mg, Benadryl 50 mg, and Zofran 8 mg given today. Patient's headache improved. Low suspicion for any acute glaucoma , temporal arteritis, meningitis, intracranial hemorrhage, ischemic stroke, ACS , PE, pneumothorax, peridcarditis, dissection, or fracture at this time. Patient is aware that his condition can change from initial presentation and that he needs to monitor symptoms closely for any acute changes. I will send him home with a prescription for Tessalon/zofran. Conservative measures for symptoms with close monitoring. Recheck with your PCM in 2-3 days. Return to the ED with any worsening/concerning symptoms otherwise as reviewed in discharge. Patient/mother are in agreement. - Vital Signs Vital signs: Temp Pulse Resp BP Pulse Ox 99.7 F 69 16 120/77 100 03/12/17 10:07 03/12/17 10:07 03/12/17 10:07 03/12/17 10:07 03/12/17 10:07 - Laboratory Result Diagrams: 03/12/17 11:10 03/12/17 11:10 Discharge - Discharge Clinical Impression: Cough Headache Qualifiers: Headache type: unspecified Headache chronicity pattern: acute headache Intractability: not intractable Qualified Code(s): R51 - Headache Condition: Stable Disposition: HOME, SELF-CARE Instructions: Headache ([facility]), Toradol Injection ([facility]), Intravenous Compazine for Headaches ([facility]), Antinausea Medication ([facility]), Tessalon Perles ([facility]), Viral Syndrome ([facility]) Additional Instructions: Maintain adequate fluid intake Take meds as directed tylenol/ibuprofen as needed over the counter cold medication as needed for symptoms Humidified air may help F/u: with your PCM in 2-3 days for a recheck Return to the ED with any fever, worsening pain, chest pain, palpitations, syncope, worsening SABILLON, neck pain/stiffness, shortness of breath, wheezing, drooling, trouble swallowing/breathing, abdominal pain, n/v/d, rash, or worsening/concerning symptoms otherwise. Prescriptions: Benzonatate [Tessalon Perle 100 mg Capsule] 100 mg PO Q8HP PRN #30 cap PRN Reason: Ondansetron [Zofran Odt 4 mg Tablet] 1 - 2 tab PO Q4H PRN #15 tab.rapdis PRN Reason: For Nausea/Vomiting Referrals: YARA KRAUSE DO [Primary Care Provider] - 03/14/17
--- NOTE | 2017-03-12 11:11 | RADIOLOGY REPORT (SQ) ---
EXAM DESCRIPTION: CHEST PA/LAT COMPLETED DATE/TIME: 03/12/2017 11:02 am REASON FOR STUDY: cough COMPARISON: 05/20/2014 EXAM PARAMETERS: NUMBER OF VIEWS: two views TECHNIQUE: Digital Frontal and Lateral radiographic views of the chest acquired. RADIATION DOSE: NA LIMITATIONS: none FINDINGS: LUNGS AND PLEURA: No opacities, masses or pneumothorax. No pleural effusion. MEDIASTINUM AND HILAR STRUCTURES: No masses or contour abnormalities. HEART AND VASCULAR STRUCTURES: Heart normal size. No evidence for failure. BONES: No acute findings. HARDWARE: None in the chest. OTHER: No other significant finding. IMPRESSION: NO SIGNIFICANT RADIOGRAPHIC FINDING IN THE CHEST. TECHNICAL DOCUMENTATION: JOB ID: [id number] [employer]- All Rights Reserved
[2017-03-12 11:31] LABS: ABSOLUTE LYMPHOCYTES (AUTO) 1.5 10^3/uL (0.5-4.7); ABSOLUTE MONOCYTES (AUTO) 0.8 10^3/uL (0.1-1.4); ABSOLUTE NEUT (AUTO) 6.5 10^3/uL (1.7-8.2); BASOPHILS % (AUTO) 0.4 % (0-2); EOSINOPHILS % (AUTO) 18.2 % (0-6); HEMATOCRIT 39.6 % (37.9-51.0); HEMOGLOBIN 14.1 g/dL (13.5-17.0); HGB HCT DIFFERENCE 2.7; LYMPHOCYTES % (AUTO) 13.9 % (13-45); MEAN CORPUSCULAR HEMOGLOBIN 30.3 pg (27.0-33.4); MEAN CORPUSCULAR HGB CONC 35.7 g/dL (32.0-36.0); MEAN CORPUSCULAR VOLUME 85 fl (80-97); MONOCYTES % (AUTO) 7.2 % (3-13); RED BLOOD COUNT 4.67 10^6/uL (4.35-5.55); RED CELL DISTRIBUTION WIDTH 13.5 % (11.5-14.0); SEGMENTED NEUTROPHILS % (AUTO) 60.3 % (42-78); WHITE BLOOD COUNT 10.8 10^3/uL (4.0-10.5)
[2017-03-12 11:58] LABS: ALANINE AMINOTRANSFERASE 42 U/L (21-72); ALBUMIN 4.1 g/dL (3.5-5.0); ALKALINE PHOSPHATASE 63 U/L (38-126); ANION GAP 10 (5-19); ASPARTATE AMINO TRANSFERASE 26 U/L (17-59); BILIRUBIN,DIRECT 0.3 mg/dL (0.0-0.4); BILIRUBIN,TOTAL 0.5 mg/dL (0.2-1.3); BLOOD UREA NITROGEN 13 mg/dL (7-20); CALCIUM 9.5 mg/dL (8.4-10.2); CARBON DIOXIDE 26 mmol/L (22-30); CHLORIDE 102 mmol/L (98-107); CREATININE RESULT 0.76 mg/dL (0.52-1.25); GLUCOSE 107 mg/dL (75-110); POTASSIUM 4.2 mmol/L (3.6-5.0); SODIUM 138.2 mmol/L (137-145); TOTAL PROTEIN 6.7 g/dL (6.3-8.2)
[2017-03-12 13:06] VITALS: BP 103/55
== END 2017-03-12 13:05 | disposition home or self-care (01) ==
LOC: ER 10:01
DX: R05 Cough (principal); R51 Headache; R11.0 Nausea
CPT/HCPCS: 99284; 96374; 96375; 36415; 85025; 80053; 71020; J1200; J1885; J0780; J2405

== ENCOUNTER 2018-12-01 18:30 | Emergency (ER) | payer BC, MEDICAID ==
[2018-12-01] MEDS ORDERED: FAMOTIDINE INJ/PF 20 MG/2 ML SDV IV ONE (18:44)
[2018-12-01] MEDS ORDERED: METHYLPREDNISOLONE INJ 125 MG/2 ML SDV IV ONE (18:44)
[2018-12-01] MEDS ORDERED: DIPHENHYDRAMINE HCL 50 MG/ML VIAL IV ONE (18:44)
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
[2018-12-01 21:20] VITALS: BP 106/87
[2018-12-01] MEDS ORDERED: HYDROXYZINE PAMOATE 25 MG CAPSULE (4 CAP/ER DISP) PO SCH (22:00)
== END 2018-12-01 21:16 | disposition home or self-care (01) ==
LOC: ER 18:30
DX: L23.7 Allergic contact dermatitis due to plants, except food (principal); R13.10 Dysphagia, unspecified; R06.00 Dyspnea, unspecified; R22.0 Localized swelling, mass and lump, head; Z88.8 Allergy status to other drugs, medicaments and biological substances; Z86.14 Personal history of Methicillin resistant Staphylococcus aureus infection
CPT/HCPCS: 99283; 96374; 96375; J1200; J3490; J2930; S0028

== ENCOUNTER 2019-04-29 19:46 | Emergency (ER) | payer MEDICAID ==
--- NOTE | 2019-04-29 20:33 | ER Document Report ---
ED Medical Screen (RME) - General Stated Complaint: BUG BITE Time Seen by Provider: 04/29/19 20:20 Primary Care Provider: KAYE MARVIN MD [Primary Care Provider] - Follow up as needed Mode of Arrival: Ambulatory Information source: Patient Notes: 28-year-old male presents emergency department abscess to his left groin area. Reports it started . Possible insect bite. Has history of MRSA. Patient stuck a needle in it last night to drain it. Areas now more swollen with erythema and drainage. Denies fever vomiting. Wound culture obtained I have greeted and performed a rapid initial assessment of this patient. A comprehensive ED assessment and evaluation of the patient, analysis of test results and completion of the medical decision making process will be conducted by additional ED providers. Dictation of this chart was performed using voice recognition software; therefore, there may be some unintended grammatical errors. TRAVEL OUTSIDE OF THE [place] IN LAST 30 DAYS: No - Related Data Allergies/Adverse Reactions: dicyclomine Allergy (Verified 03/12/17 10:11) poison elizabeth extract Allergy (Verified 12/01/18 18:31) poison oak extract Allergy (Verified 12/01/18 18:31) Past Medical History - Social History Family history: Reviewed & Not Pertinent Neurological Medical History: Denies: Hx Seizures Renal/ Medical History: Denies: Hx Peritoneal Dialysis Musculoskeltal Medical History: Reports Hx Musculoskeletal Deformity, Reports Hx Musculoskeletal Trauma Skin Medical History: Reports Hx MRSA Traumatic Medical History: Reports: Hx Fractures - right hand Past Surgical History: Reports: Hx Abdominal Surgery - pyloric stenosis, Hx Orthopedic Surgery - left great toe, right hand - Immunizations Hx Diphtheria, Pertussis, Tetanus Vaccination: Yes Physical Exam - Vital signs Vitals: Temp Pulse BP Pulse Ox 98.2 F 74 119/70 98 04/29/19 20:21 04/29/19 20:21 04/29/19 20:21 04/29/19 20:21 Course - Vital Signs Vital signs: Temp Pulse Resp BP Pulse Ox 98.2 F 74 119/70 98 04/29/19 20:21 04/29/19 20:21 04/29/19 20:21 04/29/19 20:21 Doctor's Discharge - Discharge Referrals: KAYE MARVIN MD [Primary Care Provider] - Follow up as needed
--- NOTE | 2019-04-30 00:54 | ER Document Report ---
HPI - HPI Time Seen by Provider: 04/29/19 20:20 Pain Level: 4 Notes: 28-year-old male presents emergency department abscess to his left groin area. Reports it started . Possible insect bite. Has history of MRSA. Patient stuck a needle in it last night to drain it. Areas now more swollen with erythema and drainage. Denies fever vomiting. Wound culture obtained - REPRODUCTIVE Reproductive: DENIES: : Past Medical History - General Information source: Patient - Social History Smoking Status: Never Smoker Chew tobacco use (# tins/day): No Frequency of alcohol use: Occasional Drug Abuse: None Family History: Reviewed & Not Pertinent Patient has suicidal ideation: No Patient has homicidal ideation: No Neurological Medical History: Denies: Hx Seizures Renal/ Medical History: Denies: Hx Peritoneal Dialysis Musculoskeletal Medical History: Reports Hx Musculoskeletal Deformity, Reports Hx Musculoskeletal Trauma Skin Medical History: Reports Hx MRSA Traumatic Medical History: Reports: Hx Fractures - right hand Past Surgical History: Reports: Hx Abdominal Surgery - pyloric stenosis, Hx Orthopedic Surgery - left great toe, right hand - Immunizations Hx Diphtheria, Pertussis, Tetanus Vaccination: Yes Vertical Provider Document - CONSTITUTIONAL Notes: PHYSICAL EXAMINATION: GENERAL: Well-appearing, well-nourished and in no acute distress. HEAD: Atraumatic, normocephalic. EYES: Pupils equal round extraocular movements intact, conjunctiva are normal. ENT: Nares patent NECK: Normal range of motion LUNGS: No respiratory distress Musculoskeletal: Normal range of motion NEUROLOGICAL: Normal speech, normal gait. PSYCH: Normal mood, normal affect. SKIN: Area of erythema with induration and fluctuance noted to left groin. - INFECTION CONTROL TRAVEL OUTSIDE OF THE [place] IN LAST 30 DAYS: No Course - Re-evaluation Re-evalutation: Incision and drainage performed, patient tolerated well. - Vital Signs Vital signs: Temp Pulse Resp BP Pulse Ox 98.2 F 74 119/70 98 04/29/19 20:21 04/29/19 20:21 04/29/19 20:21 04/29/19 20:21 Procedures - Incision and Drainage Left groin Type: Simple Anesthetic type: 1% Lidocaine Blade size: 11 I&D procedure: Betadine prep applied Incision Method: Incision made by scalpel Discharge - Discharge Clinical Impression: Abscess Condition: Stable Disposition: HOME, SELF-CARE Additional Instructions: You were seen for an abscess that required drainage. Please clean this area with soap and water twice daily and apply a topical antibiotic. Dress the area after each cleaning. Please return if you develop fever, vomiting, the pain at the site worsens, you notice spreading redness from the area, or you have any other symptoms that are concerning to you. Prescriptions: Sulfamethoxazole/Trimethoprim [Bactrim Ds Tablet] 1 tab PO BID #14 tablet Cephalexin [Keflex] 500 mg PO BID #14 capsule Referrals: KAYE MARVIN MD [NO LOCAL MD] - Follow up as needed
[2019-04-30 01:03] VITALS: BP 112/78
== END 2019-04-30 01:02 | disposition home or self-care (01) ==
LOC: ER 19:46
DX: L02.214 Cutaneous abscess of groin (principal); Z86.14 Personal history of Methicillin resistant Staphylococcus aureus infection
CPT/HCPCS: 87070; 87075; 87077; 87186; 87205; 99283